=== PATIENT | female | born 1950 | race Caucasian/White ===

== ENCOUNTER 2017-03-06 04:41 | Emergency (ER) | payer MEDICARE, BC ==
[2017-03-06] MEDS: ASPIRIN 81 MG TAB.CHEW PO ONE (05:03)
[2017-03-06] MEDS ORDERED: ASPIRIN 81 MG TAB.CHEW ONE (05:03)
[2017-03-06 05:08] LABS: Hematocrit 40.5 % (37.0-47.0); Hemoglobin 13.4 gm/dL (12.5-16.0); Mean Cell Volume 90.2 fl (78-100); Mean Corpuscular Hemoglobin 29.8 pg (27-31); Mean Corpuscular Hgb Conc 33.1 g/dl (32-36); Mean Platelet Volume 9.8 fl (6.0-9.5); Neutrophil % 43.5 % (42-75.0); Platelet Count 296 K/mm3 (150-450); Red Blood Count 4.49 M/mm3 (4.2-5.4); Red Cell Distribution Width 13.2 % (11.5-14.0); White Blood Count 6.9 K/mm3 (4.0-10.5)
[2017-03-06] MEDS ORDERED: ASPIRIN 81 MG TAB.CHEW PO ONE (05:21)
[2017-03-06 05:26] LABS: Prothrombin Time (Patient) 9.8 Seconds (9.4-11.4)
[2017-03-06] MEDS: MAG HYDROX/ALUMINUM HYD/SIMETH 30 ML UDC PO ONE (05:26)
[2017-03-06 05:27] LABS: INR 0.94 INR (0.90-1.10); Partial Thrombolplastin Time 25.7 Seconds (24-32)
--- NOTE | 2017-03-06 05:35 | ERNOTE ---
<Tyrell Davalos - Last Filed: 03/06/17 08:22> Chest Pain/Cardiac HPI Date of Service: 03/06/17 Chief Complaint: Chest Pain Time Seen by Provider: 03/06/17 05:05 Source: patient Exam Limitations: no limitations Immunizations: IMMUNIZATION HX Immunizations Up to Date Yes History of Influenza Vaccine No Hx Pneumococcal Vaccination Yes Allergies/Adverse Reactions: Allergies codeine phosphate [From Codeine Phosphate Soluble] Allergy (Unknown, Verified 17:25) tramadol Adverse Reaction (Severe, Verified 12/18/14 17:25) Vomiting codeine [Codeine] Adverse Reaction (Intermediate, Verified 12/18/14 17:25) Vomiting oxycodone [Oxycodone] Adverse Reaction (Intermediate, Verified 12/18/14 17:25) Vomiting Home Medications: HOME MEDICATIONS Omeprazole [Prilosec] 20 mg PO DAILY 12/18/14 [Last Taken 12/17/14 17:00] Aspirin [Aspirin EC] 81 mg PO DAILY 03/06/17 [Last Taken Unknown] Narrative: C/O CHEST PAIN . SHE STATES ABOUT 1 HOUR AGO SHE GOT UP TO GO TO THE BATHROOM AND WHEN SHE WENT TO BACK TO BED SHE HAD A SHARP MID STERNAL CHEST PAIN. SHE HAS A HX OF "HEARTBURN" FOR WHICH SHE IS ON 20 MG PRILOSEC QD AND THOUGHT MAYBE IT WAS JUST "BAD HEARTBURN" SO SHE TRIED A TUMS AND AFTER ABOUT 10 MINS THE PAIN GREATLY SUBSIDED DOWN TO 1/10 WHERE IT IS NOW. SHE HAD NO THER SYMPTOMS. SHE DENIES CAD HX. NO HX OF CHEST TRAUMA. NO HX OF LUNG DIS. THOUGH SHE HAS DIAGNOSIS OF HEARTBURN SHE HAS NEVER HAD EGD OR KNOWN REFLUX. THERE IS NO FHX OF CAD. SHE DID HAVE A FIB A COUPLE OF YEARS AGO THAT OCCURRED ABOUT 5 MONTHS AFTER A KNEE SURGERY AND SHE SAYS WAS ATTRIBUTED TO THE SURGERY. SHE STATES SHE WAS HOSPITALIZED AND THE AFIB CONVERTED WITH MEDS. SHE STATES SHE IS NOT ON ANY ANTI-COAGULATANT OR ARRYTHMIC MEDICATIONS. NO SOB OR DIAPHORESIS. Timing: gone now - ALMOST COMPLETELY ( 10) Severity/Quality: sharp Location: substernal Chest Pain Radiation: back Modifying Factors - Improves: Present: antacids Review of Systems - Review of Systems Constitutional: Present: See HPI Respiratory: Present: no symptoms reported Cardiology: Present: chest pain Gastrointestinal/Abdominal: Present: See HPI Musculoskeletal: Present: no symptoms reported Skin: Present: no symptoms reported Neurological: Present: no symptoms reported Endocrine: Present: no symptoms reported Hematologic/Lymphatic: Present: no symptoms reported Psych: Present: no symptoms reported - Patient's Past Medical History Patient History - Medical: Depression, GERD Patient History - Cardiac/Respiratory: Atrial Fibrillation, Deep Vein Thrombosis Patient History - Cancer: No Hx of Cancer Patient History - Surgical Procedures: Appendectomy, Hysterectomy, Total Knee Replacement, Orthopedic - R GREAT TOE JT. REPLACEMENT. Patient History - Other: None - Family History Family Family History - Medical: Diabetes Type 2 - Social History Living Situations: home Abuse History: No History of abuse Psych History: Hx of Depression Smoking Status: Never smoker Alcohol Use: none Drug Use: none - Immunizations Immunizations Up to Date: Yes Hx Pneumococcal Vaccination: Yes History of Influenza Vaccine: No Physical Exam - Physical Exam General Appearance: Present: wd/wn, alert, no apparent distress Respiratory: Present: no respiratory distress, normal breath sounds, no accessory muscle use, chest nontender, lungs clear. Absent: chest tenderness Cardiovascular/Chest: Present: regular rate, rhythm, no murmur, normal peripheral pulses Gastrointestinal/Abdominal: Present: normal bowel sounds, nontender, nondistended, no organomegaly Back Exam: Present: normal inspection, normal range of motion, no CVA tenderness , no vertebral tenderness Extremity Exam: Present: normal inspection Neurological Exam: Present: alert, oriented, normal mood/affect Skin Exam: Present: normal color ED Progress - Results and Orders Patient's Lab Results:: I have reviewed the patient's lab results. Results and Orders: ALL HER LAB UP TO NOW ARE NORMAL EXCEPT THE SL. ELEVATION OF THE D-DIMER FOR WHICH I DID A F.U CTA CHEST - Vital Signs Patient's Vital Signs:: I have reviewed the patient's vital signs. Vital Signs: Vital Signs 03/06/17 03/06/17 04:51 04:59 Temperature 36.6 C Pulse Rate 71 71 Respiratory 16 Rate Blood Pressure 139/78 O2 Sat by Pulse 98 Oximetry - EKG EKG: NSR - WITH OCC PVC. LOW VOLTAGE. , RBBB - INCOMPLETE. WITH LAD. NO ST OR T ABNORMALITIES. - X-Ray X-Ray #1 X-Ray: chest Interpretation: Interp. by me - WNL. - CT/Ultrasound CT/Ultrasound Narrative: OF CHEST IS NEGATIVE FOR ANY PE. THERE WAS NOTED TO BE A "TINY H. HERNIA". - Progress/Reassessment Chief Complaint: Chest Pain Progress:: Improved - "MAYBE A 11/18" - Transfer of Care Physician Sign Out: Tyrell Davalos Receiving Physician: Dieter Jeong Pending Results: Labs Expected Disposition: Discharge - I SUSPECT REPEAT TROP WITH BE NORMAL. Plan - Plan Plan: EXPLAINED TO PT AND HER SPOUSE THE PLAN FOR EVALUATION AND NEED TO DO 4 HR TROP. I IF INITIAL TROP. I IS NEGATIVE. BECAUSE HER D DIMER WAS SL. ELEVATED I ORDERED A CTA CHEST AND EXPLAINED REASONS TO PT. THE TEST RESULT ALSO EXPLAINED OF NO P.E. BUT OF "TINY" H.H. WHICH COULD BE AN EXPLANATION FOR HER C.P.COMPLAINTS. WE ARE STILL AWAITING 4 HOUR TROPONIN AND RESULTS. Departure - Departure Clinical Impression: Chest pain in adult Disposition: Home self-care Condition: Stable Additional Instructions: I have spoken with Dr Guerrero, please call his office today to discuss scheduling a stress test. Rest. Return here if you change your mind about being observed, develop return of chest pain, develop trouble breathing or if your condition worsens or changes in any way. Referrals: Genaro Guerrero, [Primary Care Provider] - <Dieter Jeong - Last Filed: 03/06/17 10:25> Chest Pain/Cardiac HPI Immunizations: IMMUNIZATION HX Immunizations Up to Date Yes History of Influenza Vaccine No Hx Pneumococcal Vaccination Yes ED Progress - Vital Signs Vital Signs: Vital Signs 03/06/17 03/06/17 03/06/17 04:51 04:59 05:29 Temperature 36.6 C Pulse Rate 71 71 65 Respiratory 16 12 Rate Blood Pressure 139/78 114/58 O2 Sat by Pulse 98 100 Oximetry 03/06/17 03/06/17 05:52 07:23 Temperature Pulse Rate 61 64 Respiratory 18 16 Rate Blood Pressure 109/58 104/77 O2 Sat by Pulse 97 100 Oximetry - Progress/Reassessment Progress Note-Subjective: 03/06/17 10:22 Patient checked out to me by Dr Davalos at shif change pending second trop. CT report return ed and I reviwed this also. Second trop negative. She is Sx free. I offered her hospital observation but she declines this and wishes to go home. She understands risks and benefits. She is Sx free. She promises me that if any Sx return she will return here immediately. I spoke with Dr Guerrero who will schedule the patient fro stress testing. I discussed warning signs and reasons to return as well as the need for close f/u.
[2017-03-06 05:37] LABS: ALT 17 U/L (19-67); AST 13 U/L (0-48); Albumin * 3.4 gm/dl (3.4-5.0); Alkaline Phosphatase * 81 U/L (50-170); Anion Gap 10.1 mmol/L (6.8-13.8); BUN/Creatinine Ratio 20.9 (9.0-21.6); Bilirubin, Total 0.3 mg/dL (0.0-1.1); Blood Urea Nitrogen 18 mg/dL (3-23); Ca. Corrected For Albumin 9.1 mg/dL (8.4-10.2); Calcium * 8.9 mg/dL (7.9-10.9); Carbon Dioxide 27.7 mmol/L (24-32.6); Chloride 106 mmol/L (97-106); Glucose * 113 mg/dL (70-110); Potassium 3.8 mmol/L (3.4-4.6); Sodium 140 mmol/L (132-142); Total Protein 6.9 gm/dL (6.2-8.2); Troponin I Less than 0.017 ng/ml (0.00-0.10)
--- OUTSIDE RECORDS SUMMARY | 2017-03-06 06:31 | XMS REPORT | Continuity of Care Document ---
:1950 Author Organization [facility] ([facility]) Address [address] [place] [address] Phone [phone] Care Team Providers Name Role Phone Unavailable Primary Care Provider Unavailable Source Comments This disclosure is being made pursuant to the Care Everywhere program, applicable federal and state laws, and may not contain all informaitonavailable regarding this patient.[facility] ([facility]) Active Allergies and Adverse Reactions Not on File Current Medications Not on file Active Problems Not on file Social History Tobacco Use Types Packs/Day Years Used Date Never Assessed Last Filed Vital Signs Vital Sign Reading Time Taken Blood Pressure - - Pulse - - Temperature - - Respiratory Rate - - Height 1.72 m (5' 7.71") 08/10/2000 9:24 AM CDT Weight 92.996 kg (205 lb 0.3 oz) 08/10/2000 9:24 AM CDT Body Mass Index 31.43 08/10/2000 9:24 AM CDT Oxygen Saturation - - Plan of Care Health Maintenance Due Date Last Done Comments HCV Screening 1950 Hepatitis B Vaccine (1 of 3 - Primary Series) 1950 Tdap Vaccine 1960 Lipid Disorder Screening 1967 Td Vaccine 1967 Mammogram 1989 Colonoscopy 1999 Zoster Vaccine 2009 Osteoporosis Screening (DXA Bone Density) 2014 Pneumococcal Vaccine (1 of 2 - PCV13) 2014 Influenza Vaccine: Seasonal (#1) 06/09/2016 Results from Last 3 Months Not on file
[2017-03-06 11:21] VITALS: BP 124/66
== END 2017-03-06 10:26 | disposition home or self-care (01) ==
LOC: ER 04:41
DX: R07.89 Other chest pain (principal); I45.10 Unspecified right bundle-branch block